=== PATIENT | female | born 1970 | race Caucasian/White ===

== ENCOUNTER 2017-06-22 15:05 | Emergency (ER) | payer OTHER ==
--- NOTE | 2017-06-22 15:28 | ED.PDOC ---
History of Present Illness - General Chief Complaint: Respiratory Problem Stated Complaint: chest discomfort and inflammation Time Seen by Provider: 06/22/17 15:07 Source: patient, RN notes reviewed, Vital Signs reviewed Exam Limitations: no limitations - History of Present Illness Initial Comments: Patient comes in with c/o chest inflammation/pain and SOB since Friday. She has asthma and called her doctor on Friday, 2 days ago, and he started her on a steroid dose pack. She took a breathing treatment at home today without improvement. She describes the pain as tightness and inflammation. + SOB & diaphoresis. No nausea. She has a. fib but no history of angina. Timing/Duration: days - 2-3, constant Severity: moderate Activities at Onset: none Possible Cause: frequent episodes - has asthma and "inflammation in my chest" Improving Factors: nothing - On steroids and did neb treatment at home Worsening Factors: nothing Associated Symptoms: chest pain Respiratory Risk Factors: no cause identified Allergies/Adverse Reactions: Allergies Methocarbamol Allergy (Verified 06/22/17 15:30) Tramadol [From Ultram] Allergy (Verified 06/22/17 15:30) Home Medications: Ambulatory Orders Albuterol 2 mg/5 ml [Proventil] 60 ml PO PRN 06/22/17 Atorvastatin Calcium [Lipitor] 20 mg PO BEDTIME 06/22/17 Azithromycin Tab [Zithromax] 250 mg PO DAILY #4 tab 06/22/17 Citalopram Hydrobromide 40 mg PO DAILY 06/22/17 Cyanocobalamin [Vitamin B-12] 1,000 mcg PO DAILY 06/22/17 Ergocalciferol [Vitamin D] 50,000 unit PO WKLY 06/22/17 Folic Acid 1 mg PO DAILY 06/22/17 HYDROcodone 10MG/APAP 325MG [[place] 10/325] 1 tab PO PRN 06/22/17 Misc Natural Products [Turmeric Curcumin] 1 cap PO DAILY 06/22/17 Pregabalin [Lyrica] 200 mg PO BID 06/22/17 Rizatriptan Benzoate 10 mg PO PRN 06/22/17 diphenhydrAMINE HCL [Benadryl] 25 mg PO PRN 06/22/17 tiZANidine [Zanaflex] 4 mg PO QID 06/22/17 Review of Systems - Review of Systems Constitutional: States: no symptoms reported, diaphoresis. Denies: chills, fever, malaise EENTM: States: no symptoms reported Respiratory: States: see HPI, short of breath Cardiology: States: chest pain. Denies: palpitations, syncope Gastrointestinal/Abdominal: States: no symptoms reported. Denies: nausea, vomiting Musculoskeletal: States: no symptoms reported Skin: States: no symptoms reported Neurological: States: no symptoms reported All other Systems: No Change from Baseline Family Medical History - Family History Father Family History: Unknown Living Status: Still Living Physical Exam - Physical Exam General Appearance: Alert, Comfortable, No apparent distress, Well Developed, Well Groomed, Well Hydrated, Well Nourished Neck: supple, normal inspection Respiratory: lungs clear, normal breath sounds, no respiratory distress, no accessory muscle use Cardiovascular/Chest: regular rate, rhythm, no gallop, no murmur Extremity: normal range of motion, normal inspection Neurologic: alert, normal mood/affect, oriented x 3 Skin Exam: normal color, warm/dry Progress - Progress Progress: 06/22/17 16:57 No significant improvement with steroids and neb treatment. Normal EKG and labs. Will try a GI Cocktail to see if that helps with her symptoms. 06/22/17 17:54 No change with GI Cocktail. CXR shows possible early central infiltrate. Will start Zithromax 500mg PO and Toradol 30mg IV. - EKG/XRAY/CT EKG: Sinus, Tachy, nonspecific ST T wave Chg Comments: Rate 105 XRAY: chest - prominent central pulmonary vasculature and interstitial markings - ? pulm edema vs early infiltrate per Radiologist. Departure - Departure Clinical Impression: Pneumonia Qualifiers: Pneumonia type: due to unspecified organism Laterality: bilateral Lung location : unspecified part of lung Qualified Code(s): J18.9 - Pneumonia, unspecified organism ICD-10 Supporting Text: Central pneumonia - bilaterally Time of Disposition: 18:49 Disposition: Discharge to Home or Self Care Condition: Good Departure Forms: ED Discharge - Pt. Copy, Patient Portal Self Enrollment, School Release Form Instructions: DI for Pneumonia -- Adult Diet: resume usual diet Activity: increase activity as tolerated Referrals: Onel Alva MD [Primary Care Provider] - 1-2 Weeks Prescriptions: Azithromycin Tab [Zithromax] 250 mg PO DAILY #4 tab Home Medications: Ambulatory Orders Albuterol 2 mg/5 ml [Proventil] 60 ml PO PRN 06/22/17 Atorvastatin Calcium [Lipitor] 20 mg PO BEDTIME 06/22/17 Azithromycin Tab [Zithromax] 250 mg PO DAILY #4 tab 06/22/17 Citalopram Hydrobromide 40 mg PO DAILY 06/22/17 Cyanocobalamin [Vitamin B-12] 1,000 mcg PO DAILY 06/22/17 Ergocalciferol [Vitamin D] 50,000 unit PO WKLY 06/22/17 Folic Acid 1 mg PO DAILY 06/22/17 HYDROcodone 10MG/APAP 325MG [[place] 10/325] 1 tab PO PRN 06/22/17 Misc Natural Products [Turmeric Curcumin] 1 cap PO DAILY 06/22/17 Pregabalin [Lyrica] 200 mg PO BID 06/22/17 Rizatriptan Benzoate 10 mg PO PRN 06/22/17 diphenhydrAMINE HCL [Benadryl] 25 mg PO PRN 06/22/17 tiZANidine [Zanaflex] 4 mg PO QID 06/22/17
[2017-06-22 15:31] VITALS: TEMP 98.5
[2017-06-22] MEDS ORDERED: IPRATROPIUM/ALBUTEROL 3 ML VIAL NEB ONE (16:10)
[2017-06-22 16:37] VITALS: O2SAT 96
[2017-06-22] MEDS ORDERED: LIDOCAINE VIS-MYLANTA 30 ML UD PO ONE (16:57)
--- NOTE | 2017-06-22 17:01 | RAD ---
EXAM DESCRIPTION: Chest,2 Views CLINICAL HISTORY: 46 years Female Chest pain and SOB COMPARISON: None. FINDINGS: Heart size appears within normal limits. Multilevel degenerative change in the thoracic spine. No pleural fluid or evidence of pneumothorax. Interstitial markings appear prominent as is the central pulmonary vasculature. No alveolar consolidation. IMPRESSION: Prominent central pulmonary vasculature and interstitial markings. Question developing infiltrate versus edema Electronically signed by: Kaelyn Hoffman 06/22/2017 4:59 PM CDT
[2017-06-22] MEDS ORDERED: KETOROLAC TROMETHAMINE INJ 30 MG/ML VIAL IV ONE (17:54)
[2017-06-22] MEDS ORDERED: AZITHROMYCIN 250 MG TAB PO ONE (17:54)
[2017-06-22 19:01] VITALS: BP 128/76
== END 2017-06-22 19:01 | disposition home or self-care (01) ==
LOC: ER 15:05
DX: J18.9 Pneumonia, unspecified organism (principal); I48.91 Unspecified atrial fibrillation; Z88.8 Allergy status to other drugs, medicaments and biological substances
CPT/HCPCS: 36415; 71020; 80053; 82550; 82553; 84484; 85025; 93005; 94640; 94760; J1885; J7620; Q0144

== ENCOUNTER → 2018-02-11 | Outpatient (CLI) | payer OTHER ==
--- NOTE | 2018-02-12 15:39 | MAM ---
EXAM DESCRIPTION: 3D Screening BILATERAL : Digital Mammography. CLINICAL HISTORY: 47 years Female ANNUAL SCREENING . No complaints. Unknown family history. Nulliparous. Premenopausal. No HRT. COMPARISON: Baseline study at this facility.. No prior reports available. TECHNIQUE: Bilateral CC and MLO projection full-field images, 3-D tomosynthesis digital mammographic technique. Also bilateral synthesized CC/ MLO full-field images. CAD not utilized. FINDINGS: The breast parenchymal density pattern is: Heterogeneously dense breast tissue, which may obscure small masses. No skin thickening or nipple retraction bilateral solitary microcalcifications. Retroareolar tissue bilaterally is extremely dense. No focal, stellate mass or density, focal asymmetry , and no suspicious microcalcifications bilaterally. Stable mammograms compared to prior study, taking into account differences in mammographic technique IMPRESSION: BI-RADS CATEGORY: 0 - INCOMPLETE- Need prior mammograms for comparison. FOLLOW-UP: Comparison with prior examination(s) when available. Written communication explaining the results and follow-up will be mailed to the patient and referring care provider. Electronically signed by: Montez Winter MD 02/12/2018 3:37 PM CDT
== END ==
LOC: MAMMO 15:00
PROVIDERS: ATTEND Family Medicine
DX: Z12.31 Encounter for screening mammogram for malignant neoplasm of breast (principal)

== ENCOUNTER → 2018-03-10 | Outpatient (CLI) | payer OTHER ==
--- NOTE | 2018-03-11 13:12 | US ---
EXAM DESCRIPTION: Breast,Bilateral: Ultrasound CLINICAL HISTORY: 47 yearsFemaleABN MAMMO. Focal asymmetry left breast on screening examination. COMPARISON: Digital diagnostic 3-D tomosynthesis bilateral mammography on this visit. Bilateral screening 3-D tomosynthesis mammography 02/19/2018. TECHNIQUE: Transcutaneous scanning of the left breast utilizing two-dimensional and Doppler modes. Scanning performed by the pet care attendant and Dr. Winter. FINDINGS: Scanning at the 600 clock position of the left breast 5 cm from the nipple to the nipple. Well-defined hypoechoic versus anechoic object measuring 4.8 mm with equal orientation parallel versus nonparallel, but posterior enhancement features. Surrounding tissue is heterogeneous fibroglandular echotexture. Most likely a simple cyst or complicated cyst. No distinct solid mass or cyst in the adjacent tissues. No large calcifications or parenchymal edema. No overlying skin changes. No abnormal vascularity. IMPRESSION: 1. Bi-Rads Category 2: Benign. 2. Please refer to bilateral 3-D Angelia synthesis diagnostic mammographic examination and report on this visit. The FINDINGS and the FOLLOW-UP plan were reviewed in person with the patient after the examination. Written communication explaining the IMPRESSION and FOLLOW-UP will be mailed to the patient and referring care provider. Electronically signed by: Montez Winter MD 03/11/2018 1:10 PM CDT
--- NOTE | 2018-03-11 14:13 | MAM ---
EXAM DESCRIPTION: 3D Diagnostic, Bilateral: Digital Mammography CLINICAL HISTORY: 47 yearsFemaleABNORMAL MAMMO . Bilateral breast focal asymmetry. COMPARISON: Bilateral 3-D tomosynthesis mammographic breast screening 02/11/2018. Bilateral targeted breast ultrasound following this examination. Report from prior examination also reviewed. TECHNIQUE: Bilateral LM projection full-field images, 3-D tomosynthesis digital mammographic technique. Bilateral 2-D digital spot magnification middle third of the breasts. CAD on 2-D images only FINDINGS: The breast parenchymal density pattern is: Heterogeneously dense breast tissue, which may obscure small masses. No skin thickening or nipple retraction bilateral solitary microcalcifications. Minimal focal asymmetry noted on the LM tomosynthesis images bilaterally at the 600 clock position of the anterior left breast in the 600-700 clock position of the anterior right breast. No focal, stellate mass or density, , and no suspicious microcalcifications bilaterally. ULTRASOUND: Scanning at the 600 clock position of the left breast 5 cm from the nipple to the nipple. Well-defined hypoechoic versus anechoic object measuring 4.8 mm with equal orientation parallel versus nonparallel, but posterior enhancement features. Surrounding tissue is heterogeneous fibroglandular echotexture. Most likely a simple cyst or complicated cyst. No distinct solid mass or cyst in the adjacent tissues. No large calcifications or parenchymal edema. No overlying skin changes. No abnormal vascularity. Scanning of the right breast at the 600 clock position 4 cm from the nipple to the nipple. No distinct solid mass or distinct cyst. No large calcifications or parenchymal edema. No overlying skin changes. No abnormal Doppler vascularity. IMPRESSION: BI-RADS CATEGORY: 2 - BENIGN FINDINGS. FOLLOW UP: Return to routine digital bilateral screening, one year interval from February 2018. Written communication explaining the IMPRESSION and follow-up, will be mailed to the patient and referring health care provider. According to the [employer], yearly mammograms are recommended starting at age 40 and continuing as long as a woman is in good health. Any breast change noted on a breast self-exam should be reported promptly to the patient's healthcare provider. Breast MRI is recommended for women with an approximately 20-25% or greater lifetime risk of breast cancer, including women with a strong family history of breast or ovarian cancer and women who have been treated for Hodgkin's disease. A negative mammographic report should not delay tissue diagnosis in patients with significant clinical history or physical findings. Extremely dense breast tissue limits the sensitivity of digital mammography. Electronically signed by: Montez Winter MD 03/11/2018 2:12 PM CDT
== END ==
LOC: MAMMO 14:00
PROVIDERS: ATTEND Family Medicine
DX: R92.2 Inconclusive mammogram (principal)
CPT/HCPCS: 76641; 77066; G0279